=== PATIENT | male | born 1985 | race American Indian/Alaskan Native ===

== ENCOUNTER 2017-10-28 14:59 | Emergency (ER) | payer SELFPAY ==
[2017-10-28] MEDS ORDERED: SUCR1TAB51 PO (15:14)
[2017-10-28] MEDS ORDERED: OMEP-125 PO (15:15)
[2017-10-28] MEDS ORDERED: LOSA-54 PO (15:15)
[2017-10-28] MEDS ORDERED: METO-233 PO (15:16)
--- NOTE | 2017-10-28 15:25 | ER Report ---
History and Physical Time Seen By MD: 15:19 Hx. of Stated Complaint: PT WAS SEEN ELSEWHERE WHERE HE HAD AN ECG THAT WAS GOOD. PT WAS DIAGNOSED WITH GERD AND PRESCRIBED OMEPRAZOLE AND CARAFATE. PT REPORTS EPIGASTRIC PAIN THAT COMES AND GOES. HPI/ROS HPI: 32-year-old male presents to the ED with complaints of "stomach pain." The patient reports that he initially saw a provider in the [facility] on Sunday10/22/17 and received an ECG and two prescriptions for sucralfate and omeprazole. The patient reports the sucralfate and omeprazole has not improved his symptoms. He reports increased pain this morning from 10:00 to 11:30. The patient reports the pain is made worse every time he eats no matter what he eats. The patient reports that he "googled a good diet to eat for this problems" and reports eating boiled vegetables with no seasoning. Reports no history of abdominal surgeries. States he has always had high blood pressure and was placed on a beta carlos as well as, losartan with hydrochlorothiazide in January 2017. He reports no improvement in blood pressure. ROS: General: Patient denies having any fevers. Skin: Patient denies any rashes or lesions. Allergies: Coded Allergies: No Known Drug Allergies (Unverified , 10/28/17) Home Meds Reported Medications Metoprolol Succinate (TOPROL XL) 50 Mg Tab.er.24h, 1 TAB PO QDAY, TAB 10/28/17 Losartan/Hydrochlorothiazide (LOSARTAN-HCTZ 100-25 MG TAB) 1 Each Tablet, 1 EACH PO QDAY 10/28/17 Omeprazole (OMEPRAZOLE) 20 Mg Capsule.dr, 1 CAP PO BID, CAP 10/28/17 Sucralfate (SUCRALFATE) 1 Gm Tablet, 1 GM PO QID 10/28/17 Past Medical/Surgical History Patient has a past medical history of hypertension, fatty liver disease, reflux. Patient has surgical history right eye surgery. Reviewed Nurses Notes: Yes Hx Substance Use Disorder: No Hx Alcohol Use: No Constitutional Vital Sign - Last 24 Hours 10/28/17 10/28/17 10/28/17 10/28/17 15:09 15:11 15:14 15:29 Temp 98.4 Pulse 72 68 70 Resp 12 B/P (MAP) 165/115 (132) 165/115 Pulse Ox 95 98 98 O2 Delivery Room Air 10/28/17 10/28/17 10/28/17 10/28/17 15:44 15:59 16:14 16:29 Pulse 67 64 72 Pulse Ox 98 98 94 96 10/28/17 10/28/17 10/28/17 10/28/17 16:44 16:45 17:00 17:05 Pulse 78 83 82 B/P (MAP) 159/103 (121) Pulse Ox 99 98 95 10/28/17 10/28/17 10/28/17 10/28/17 17:15 17:16 17:30 17:45 Pulse 86 84 90 B/P (MAP) 155/94 (114) 156/104 (121) 157/104 (121) Pulse Ox 95 95 96 10/28/17 18:00 Pulse 79 B/P (MAP) 157/108 (124) Pulse Ox 96 Intake and Output 10/28/17 10/28/17 10/29/17 14:59 22:59 06:59 Intake Total 1000 ml Balance 1000 ml Physical Exam General Appearance: The patient is alert, has no immediate need for airway protection and no current signs of toxicity. Respiratory: Chest is non tender, lungs are clear to auscultation. Cardiac: regular rate and rhythm Gastrointestinal: Abdomen is soft and mildly tender in the left upper quadrant, no masses, bowel sounds normal. Musculoskeletal: Neck: Neck is supple and non tender. Extremities have full range of motion and are non tender. Skin: No rashes or lesions. DIFFERENTIAL DIAGNOSIS: After history and physical exam differential diagnosis was considered for abdominal pain including but not limited to appendicitis, cholecystitis, gastritis and urinary tract infection. Medical Decision Making Data Points Result Diagram: 10/28/17 1600 10/28/17 1600 Laboratory Hematology Test 10/28/17 16:00 10/28/17 16:08 Red Blood Count 6.28 M/uL (4.00-5.60) Mean Corpuscular Volume 78.9 fL (80.0-96.0) Mean Corpuscular Hemoglobin 27.7 pg (26.0-33.0) Mean Corpuscular Hemoglobin Concent 35.1 g/dL (32.0-36.0) Red Cell Distribution Width 12.7 % (11.5-14.5) Mean Platelet Volume 8.0 fL (7.2-11.1) Neutrophils (%) (Auto) 64.2 % (39.4-72.5) Lymphocytes (%) (Auto) 16.7 % (17.6-49.6) Monocytes (%) (Auto) 5.3 % (4.1-12.4) Eosinophils (%) (Auto) 13.5 % (0.4-6.7) Basophils (%) (Auto) 0.3 % (0.3-1.4) Nucleated RBC Relative Count (auto) 0.1 /100WBC Neutrophils # (Auto) 10.9 K/uL (2.0-7.4) Lymphocytes # (Auto) 2.8 K/uL (1.3-3.6) Monocytes # (Auto) 0.9 K/uL (0.3-1.0) Eosinophils # (Auto) 2.3 K/uL (0.0-0.5) Basophils # (Auto) 0.1 K/uL (0.0-0.1) Nucleated RBC Absolute Count (auto) 0.01 K/uL Peripheral Blood Smear Yes Y/N Erythrocyte Sedimentation Rate 5 mm/HOUR (0-15) Sodium Level 139 mmol/L (137-145) Potassium Level 3.5 mmol/L (3.5-5.0) Chloride Level 94 mmol/L (98-107) Carbon Dioxide Level 29 mmol/L (22-30) Blood Urea Nitrogen 7 mg/dl (9-21) Creatinine 0.90 mg/dl (0.66-1.25) Glomerular Filtration Rate Calc > 60.0 Random Glucose 102 mg/dl (75-110) Calcium Level 9.7 mg/dl (8.4-10.2) Total Bilirubin 0.8 mg/dl (0.2-1.3) Aspartate Amino Transf (AST/SGOT) 48 U/L (0-35) Alanine Aminotransferase (ALT/SGPT) 101 U/L (0-56) Alkaline Phosphatase 72 U/L (0-126) Troponin I < 0.012 ng/ml C-Reactive Protein < 0.5 mg/dl (<1.0) Total Protein 8.9 gm/dl (6.3-8.2) Albumin 4.7 g/dl (3.5-5.0) Amylase Level 81 U/L (0-110) Lipase 72 U/L (23-300) Helicobacter pylori IgG Antibody Negative (NEGATIVE) Urine Color Straw Urine Clarity Clear Urine pH 6.0 pH (4.8-9.5) Urine Specific Hawkins 1.005 Urine Protein Negative mg/dL (NEGATIVE) Urine Glucose (UA) Negative mg/dL (NEGATIVE) Urine Ketones Negative mg/dL (NEGATIVE) Urine Blood Negative (NEGATIVE) Urine Nitrite Negative (NEGATIVE) Urine Bilirubin Negative (NEGATIVE) Urine Urobilinogen Negative mg/dL (0.2-1.9) Urine Leukocyte Esterase Negative (NEGATIVE) Urine RBC None /HPF (0-2/HPF) Urine WBC <1 /HPF (0-5/HPF) Urine Squamous Epithelial Cells None /LPF (</=FEW) Urine Bacteria Negative /HPF (NONE-FEW) Urine Mucus None /HPF (NONE-FEW) Chemistry Test 10/28/17 16:00 10/28/17 16:08 White Blood Count 17.0 k/uL (4.5-11.0) Red Blood Count 6.28 M/uL (4.00-5.60) Hemoglobin 17.4 g/dL (14.0-18.0) Hematocrit 49.6 % (42.0-52.0) Mean Corpuscular Volume 78.9 fL (80.0-96.0) Mean Corpuscular Hemoglobin 27.7 pg (26.0-33.0) Mean Corpuscular Hemoglobin Concent 35.1 g/dL (32.0-36.0) Red Cell Distribution Width 12.7 % (11.5-14.5) Platelet Count 300 K/uL (150-450) Mean Platelet Volume 8.0 fL (7.2-11.1) Neutrophils (%) (Auto) 64.2 % (39.4-72.5) Lymphocytes (%) (Auto) 16.7 % (17.6-49.6) Monocytes (%) (Auto) 5.3 % (4.1-12.4) Eosinophils (%) (Auto) 13.5 % (0.4-6.7) Basophils (%) (Auto) 0.3 % (0.3-1.4) Nucleated RBC Relative Count (auto) 0.1 /100WBC Neutrophils # (Auto) 10.9 K/uL (2.0-7.4) Lymphocytes # (Auto) 2.8 K/uL (1.3-3.6) Monocytes # (Auto) 0.9 K/uL (0.3-1.0) Eosinophils # (Auto) 2.3 K/uL (0.0-0.5) Basophils # (Auto) 0.1 K/uL (0.0-0.1) Nucleated RBC Absolute Count (auto) 0.01 K/uL Peripheral Blood Smear Yes Y/N Erythrocyte Sedimentation Rate 5 mm/HOUR (0-15) Glomerular Filtration Rate Calc > 60.0 Calcium Level 9.7 mg/dl (8.4-10.2) Total Bilirubin 0.8 mg/dl (0.2-1.3) Aspartate Amino Transf (AST/SGOT) 48 U/L (0-35) Alanine Aminotransferase (ALT/SGPT) 101 U/L (0-56) Alkaline Phosphatase 72 U/L (0-126) Troponin I < 0.012 ng/ml C-Reactive Protein < 0.5 mg/dl (<1.0) Total Protein 8.9 gm/dl (6.3-8.2) Albumin 4.7 g/dl (3.5-5.0) Amylase Level 81 U/L (0-110) Lipase 72 U/L (23-300) Helicobacter pylori IgG Antibody Negative (NEGATIVE) Urine Color Straw Urine Clarity Clear Urine pH 6.0 pH (4.8-9.5) Urine Specific Hawkins 1.005 Urine Protein Negative mg/dL (NEGATIVE) Urine Glucose (UA) Negative mg/dL (NEGATIVE) Urine Ketones Negative mg/dL (NEGATIVE) Urine Blood Negative (NEGATIVE) Urine Nitrite Negative (NEGATIVE) Urine Bilirubin Negative (NEGATIVE) Urine Urobilinogen Negative mg/dL (0.2-1.9) Urine Leukocyte Esterase Negative (NEGATIVE) Urine RBC None /HPF (0-2/HPF) Urine WBC <1 /HPF (0-5/HPF) Urine Squamous Epithelial Cells None /LPF (</=FEW) Urine Bacteria Negative /HPF (NONE-FEW) Urine Mucus None /HPF (NONE-FEW) Urinalysis Test 10/28/17 16:08 Urine Color Straw Urine Clarity Clear Urine pH 6.0 pH (4.8-9.5) Urine Specific Hawkins 1.005 Urine Protein Negative mg/dL (NEGATIVE) Urine Glucose (UA) Negative mg/dL (NEGATIVE) Urine Ketones Negative mg/dL (NEGATIVE) Urine Blood Negative (NEGATIVE) Urine Nitrite Negative (NEGATIVE) Urine Bilirubin Negative (NEGATIVE) Urine Urobilinogen Negative mg/dL (0.2-1.9) Urine Leukocyte Esterase Negative (NEGATIVE) Urine RBC None /HPF (0-2/HPF) Urine WBC <1 /HPF (0-5/HPF) Urine Squamous Epithelial Cells None /LPF (</=FEW) Urine Bacteria Negative /HPF (NONE-FEW) Urine Mucus None /HPF (NONE-FEW) EKG/Imaging EKG Interpretation 12 lead EKG: Rhythm: normal sinus rhythm with a ventricular rate of 72 bpm. Mulberry: normal QRS: normal ST segments: normal Imaging 2 VIEWS CHEST INDICATION: Chest pain and epigastric pain. COMPARISON: None available FINDINGS: Cardiomediastinal silhouette and pulmonary vessels within normal limits. There is no focal infiltrate or lobar consolidation. There is no pneumothorax or pleural effusion. No nodule. Upper abdomen is unremarkable. No acute bony abnormality. IMPRESSION: 1. No acute cardiopulmonary process. Report Dictated By: Saurabh Henriquez at 10/28/2017 4:52 PM Report E-Signed By: Saurabh Henriquez at 10/28/2017 4:54 PM EXAMINATION: Limited right upper quadrant ultrasound Additional Pertinent history: Right upper quadrant pain. COMPARISON STUDIES: None. FINDINGS: Gallbladder: no stones, sludge, wall thickening or pericholecystic fluid. Negative ultrasound Ayala sign. Liver: Diffusely echogenic without focal abnormality. Liver surface is smooth. Portal vein is patent. No ascites. Common duct: normal 3.2 mm. Pancreas: Normal Right kidney: negative Proximal IVC/Aorta: negative IMPRESSION: 1. No acute abnormality. 2. Diffusely echogenic liver consistent with fatty infiltration or chronic disease. No focal abnormality. Report Dictated By: Saurabh Henriquez at 10/28/2017 5:20 PM Report E-Signed By: Saurabh Henriquez at 10/28/2017 5:22 PM ED Course/Re-evaluation ED Course Patient was admitted to an exam room, history and physical obtained. Differential diagnoses were considered. On examination patient has tenderness in the left upper quadrant. With a history of epigastric pain shortly after eating I do have some concerns about cholecystitis. A CBC, CMP, CRP, ESR, amylase, lipase were done. Lab results were fairly unremarkable. Patient did have an elevated ALT and AST. I believe is likely secondary to the fatty liver disease. A chest x-ray, troponin were done to rule out any heart disease and those were negative. EKG was also done which showed a normal sinus rhythm with a ventricular rate of 72 bpm. Ultrasound of the gallbladder was done which was also negative except for hyper echogenic liver consistent with fatty liver disease. Discussed findings with patient. We will go ahead and increase his omeprazole to 40 mg twice a day. Patient is to continue the Carafate and follow- up with primary care. It is possible that he will need a upper endoscopy as well as cardiology referral due to persistently elevated blood pressure. Patient verbalized understanding and agreement with plan. Decision to Disposition Date: Oct 28, 2017 Decision to Disposition Time: 17:55 Depart Departure Latest Vital Signs Vital Signs Date Time Temp Pulse Resp B/P (MAP) Pulse Ox O2 Delivery O2 Flow Rate FiO2 10/28/17 18:00 79 157/108 (124) 96 10/28/17 15:11 98.4 12 Room Air Impression: Primary Impression: Epigastric pain Additional Impression: Hypertension Condition: Improved Disposition: HOME OR SELF-CARE Referrals: SAM LYNN MD Additional Instructions: Take 2 tablets of omeprazole in the morning and at night. Take Sucralfate as you have been. Use liquid as needed for pain. Follow up with [facility] provider tomorrow to discuss emergency visit. Follow up with [facility] as soon as possible. The closest specialist is in [place]. [facility] [address] [place] [address] Consider getting an upper endoscopy with the local general surgeon while you wait for an appointment with the [facility] or general surgeon here in [facility], DR. Lynn. Consider seeing a calciner operator for your high blood pressure. Return to the Emergency Department if your condition worsens. Problem Qualifiers Additional Impression: Hypertension Hypertension type: unspecified Qualified Codes: I10 - Essential (primary) hypertension GRANT NOVA Oct 28, 2017 15:25
[2017-10-28] MEDS ORDERED: NS(*) 0.9% 1000 ML BAG 1,000 ML IV ONE (15:51)
[2017-10-28] MEDS ORDERED: MAG HYD/AL HYD/SIMETH 30ML UDC PO ONE ×2 (16:00→17:55)
[2017-10-28] MEDS ORDERED: LIDOCAINE 2% VISC SLN 15ML UDC PO ONE ×2 (16:00→17:55)
[2017-10-28 16:17] LABS: PLATELET COUNT, AUTOMATED 300 K/uL (150-450)
--- NOTE | 2017-10-28 16:57 | RADIOLOGY IMAGING REPORT ---
FACILITY: [facility] PATIENT NAME: Agustin Guerrier : 1985 MR: [id number] V: [id number] EXAM DATE: ORDERING PHYSICIAN: GRANT NOVA TECHNOLOGIST: Location: [facility] Patient: Agustin Guerrier : 1985 Visit/Account:[id number] Date of Sevice: 10/28/2017 2 VIEWS CHEST INDICATION: Chest pain and epigastric pain. COMPARISON: None available FINDINGS: Cardiomediastinal silhouette and pulmonary vessels within normal limits. There is no focal infiltrate or lobar consolidation. There is no pneumothorax or pleural effusion. No nodule. Upper abdomen is unremarkable. No acute bony abnormality. IMPRESSION: 1. No acute cardiopulmonary process. Report Dictated By: Saurabh Henriquez at 10/28/2017 4:52 PM Report E-Signed By: Saurabh Henriquez at 10/28/2017 4:54 PM WSN:[id number]
--- NOTE | 2017-10-28 17:26 | RADIOLOGY IMAGING REPORT ---
FACILITY: [facility] - [place] [place] PATIENT NAME: Agustin Guerrier : 1985 MR: [id number] V: [id number] EXAM DATE: ORDERING PHYSICIAN: GRANT NOVA TECHNOLOGIST: Location: [facility] Patient: Agustin Guerrier : 1985 Visit/Account:[id number] Date of Sevice: 10/28/2017 EXAMINATION: Limited right upper quadrant ultrasound Additional Pertinent history: Right upper quadrant pain. COMPARISON STUDIES: None. FINDINGS: Gallbladder: no stones, sludge, wall thickening or pericholecystic fluid. Negative ultrasound Ayala sign. Liver: Diffusely echogenic without focal abnormality. Liver surface is smooth. Portal vein is patent. No ascites. Common duct: normal 3.2 mm. Pancreas: Normal Right kidney: negative Proximal IVC/Aorta: negative IMPRESSION: 1. No acute abnormality. 2. Diffusely echogenic liver consistent with fatty infiltration or chronic disease. No focal abnormal ity. Report Dictated By: Saurabh Henriquez at 10/28/2017 5:20 PM Report E-Signed By: Saurabh Henriquez at 10/28/2017 5:22 PM WSN:[email or web address]
[2017-10-28 18:00] VITALS: BP 157/108
--- NOTE | 2017-10-28 18:13 | EKG ---
[place] [facility] [place] NAME: ANDERSON DAUGHERTY : [id number] MR: [id number] V: [id number] EXAM DATE: ORDERING PHYSICIAN: GRANT NOVA TECHNOLOGIST: MARISELA Deras Reason : Blood Pressure : / mmHG Vent. Rate : 072 BPM Atrial Rate : 072 BPM P-R Int : 138 ms QRS Dur : 096 ms QT Int : 400 ms P-R-T Axes : 038 009 042 degrees QTc Int : 438 ms Normal sinus rhythm Normal ECG No previous ECGs available Confirmed by KAYCEE MCGUIRE ([id number]) on 10/29/2017 6:34:07 AM Referred By: ROHINI Confirmed By:KAYCEE MCGUIRE
== END 2017-10-28 18:10 | disposition home or self-care (01) ==
LOC: EDBD 14:59 → ER 15:24
DX: R10.13 Epigastric pain (principal); I10 Essential (primary) hypertension
CPT/HCPCS: 71046; 76705; 81001; 82150; 83690; 84484; 85025; 85651; 86140; 86677; 93005; 96360; 99284; J7030; 49083; 82040; 82247; 82310; 82374; 82435; 82565; 82947; 84075; 84132; 84155; 84295; 84450; 84460; 84520

== ENCOUNTER → 2017-11-05 | Outpatient (CLI) | payer SELFPAY ==
[~2017-11-05] MED LIST: LOSA-54 PO; METO-233 PO; OMEP-125 PO; SINCALIDE 5 MCG VIAL INJ ONE; SUCR1TAB51 PO; WATER FOR INJ,STERILE 20 ML 20 ML ONE
--- NOTE | 2017-11-05 12:23 | RADIOLOGY IMAGING REPORT ---
FACILITY: [facility] - [place] PATIENT NAME: Agustin Guerrier : 1985 MR: [id number] V: [id number] EXAM DATE: ORDERING PHYSICIAN: UMAIR VELASCO TECHNOLOGIST: Location: [facility] [place] Patient: Agustin Guerrier : 1985 Visit/Account:[id number] Date of Sevice: 11/05/2017 HIDA W/CCK HISTORY: Epigastric pain TECHNIQUE: 6.7 mCi Tc99m Hepatolite was injected intravenously. Multiple sequential gamma camera wilfredo ges of the abdomen were obtained for 16 minutes. At that time, Kinevac was injected intravenously and an additional 30 minutes of gamma camera imaging data was acquired. A computer-generated region of i nterest was placed around the gallbladder and time-activity curve for the gallbladder was derived. Th e gallbladder ejection fraction was calculated. COMPARISON: Gallbladder ultrasound October 28, 2017 FINDINGS: Liver uptake and excretion: Unremarkable. Time to appearance: Bile ducts: 5 minutes. Gallbladder: 6 minutes. Duodenum: 8 minutes. Duodenal-gastric reflux / extravasation: None. Post IV Kinevac: Normal and prompt contraction of the gallbladder. Patient symptoms: Abdomen pain with CCK injection Ejection fraction = 54% (normal range >35%). IMPRESSION: Normal gallbladder ejection fraction of 54% Report Dictated By: Magdalena Omalley MD at 11/05/2017 12:17 PM Report E-Signed By: Magdalena Omalley MD at 11/05/2017 12:19 PM WSN:[email or web address]
== END ==
LOC: NUC 11-01 13:15
PROVIDERS: ATTEND Nurse Practitioner Family
DX: R10.13 Epigastric pain (principal)
CPT/HCPCS: 78226; A9537; J2805